=== PATIENT | female | born 1965 | race Caucasian/White ===

== ENCOUNTER 2018-04-01 20:37 | Emergency (ER) | payer OTHER ==
--- NOTE | 2018-04-01 21:31 | ERPHSYRPT ---
- History of Present Illness Time Seen by Provider: 04/01/18 21:18 Source: patient Exam Limitations: no limitations Physician History: The patient is a 52-year-old female complaining of what she thinks was a bug bite or spider bite to her left hip about 2 weeks ago. It became red and swollen and painful. One week ago she saw [facility] and was put on Bactrim 1 tablet twice a day. It has not improved. She's had difficulty now sleeping at night because it has been hurting when she rolls over on it. [facility] care tried to do an incision but there was no pus in it. She's had a history of MRSA in the past and she states this does not act like MRSA. She denies fever or chills. Her past medical history significant for MRSA infections, diabetes, hypothyroidism, and IgA deficiency. Timing/Duration: week(s) (2), gradual onset, worse Quality: painful Severity: moderate Location: extremities (left hip) Possible Causes: insect bite (possible spider) Associated Symptoms: change in skin texture, rash, swelling/mass/lumps - Review of Systems Constitutional: No Fever, No Chills Eyes: No Symptoms Ears, Nose, & Throat: No Symptoms Respiratory: No Cough, No Dyspnea Cardiac: No Chest Pain, No Edema, No Syncope Abdominal/Gastrointestinal: No Abdominal Pain, No Nausea, No Vomiting, No Diarrhea Genitourinary Symptoms: No Dysuria Musculoskeletal: No Back Pain, No Neck Pain Skin: Rash Neurological: No Dizziness, No Focal Weakness, No Sensory Changes Psychological: No Symptoms Endocrine: No Symptoms Hematologic/Lymphatic: No Symptoms Immunological/Allergic: No Symptoms All Other Systems: Reviewed and Negative - Physical Exam General Appearance: no apparent distress, alert Eye Exam: PERRL/EOMI, eyes nml inspection Ears, Nose, Throat Exam: normal ENT inspection, pharynx normal, moist mucous membranes Neck Exam: normal inspection, non-tender, supple, full range of motion Respiratory Exam: normal breath sounds, lungs clear, No respiratory distress Cardiovascular Exam: regular rate/rhythm, normal heart sounds Gastrointestinal/Abdomen Exam: soft, mass, No tenderness Pelvic Exam: not done Rectal Exam: not done Back Exam: normal inspection, normal range of motion, No CVA tenderness, No vertebral tenderness Extremity Exam: normal inspection, normal range of motion Neurologic Exam: alert, oriented x 3, cooperative, normal mood/affect, sensation nml, No motor deficits Skin Exam: rash (Examination of the skin over the left hip: The area is red, swollen, warm, and indurated. There is no fluctuance. There is in the 1 cm scabbed area in the center of the rash. There is been obvious mild sloughing of the skin over the erythematous region. The area is tender to palpation.) SpO2 Interpretation: normal Oxygen Delivery: Room Air - Progress Progress: unchanged Counseled pt/family regarding: diagnosis, need for follow-up - Departure Time of Disposition: 21:35 Departure Disposition: Home Clinical Impression: Cellulitis Condition: Stable Critical Care Time: No Additional Instructions: You have an area of sialitis on your left hip. Discontinue using Bactrim. You were given clindamycin 300 mg orally in the ER. Continue with clindamycin 300 mg 4 times a day for 10 days. Take [place] one tablet every 4-6 hours as needed for pain. You may apply warm compresses to the area for 10 minutes to 20 minutes at a time. Follow-up with your primary medical doctor in 2-3 days if no improvement. Prescriptions: Clindamycin HCl 1 cap PO QID #40 capsule
[2018-04-01] MEDS ORDERED: CLEOCIN 150 MG CAPSULE PO ONE (21:36)
[2018-04-01] MEDS ORDERED: NORCO 5/325 MG PO ONE (21:37)
[2018-04-01 21:43] VITALS: BP 141/76; PULSE 68; O2SAT 99
[2018-04-01] MEDS ORDERED: NORCO 5/325 MG ONE (21:45)
[2018-04-01] MEDS ORDERED: CLEOCIN 150 MG CAPSULE ONE (21:45)
== END 2018-04-01 21:52 | disposition home or self-care (01) ==
LOC: ED 20:37
DX: L03.116 Cellulitis of left lower limb (principal)
CPT/HCPCS: 99283; A9270-GY